=== PATIENT | female | born 1950 | race Caucasian/White ===

== ENCOUNTER 2021-02-11 18:48 | Emergency (ER) | payer MEDICARE ==
[~2021-02-11] VITALS: Ht 152.4 cm; Wt 47.2 kg
--- OUTSIDE RECORDS SUMMARY | 2021-02-11 18:50 | XMS ---
PreManage Notification: MICHELLE SALMERON Security [employer] Events No recent Security Events currently on file CRITERIA MET - PDMP CARE PROVIDERS GRAY SETHI Internal Medicine: Rheumatology Current PHONE: Unknown Davina has no Care Guidelines for this patient. EJose VISIT COUNT (12 MO.) 1 BETSEY Jiménez TOTAL 1 NOTE: Visits indicate total known visits. ED/UCC VISIT TRACKING (12 MO.) 02/11/2021 18:49 BETSEY [facility] OR TYPE: Emergency COMPLAINT: - RT SHOULDER PAIN/NO INJURY INPATIENT VISIT TRACKING (12 MO.) No inpatient visits to display in this time frame [email or web address]
[2021-02-11] MEDS ORDERED: METHOTREXA25 MG/1 ML INJ (20:11)
[2021-02-11] MEDS ORDERED: LEUCOVORIN CALCI5 MG (20:11)
[2021-02-11] MEDS ORDERED: ESTRADIOL1 EAC7 (20:11)
[2021-02-11] MEDS ORDERED: VALACYCLOVIR1000 MG PO (20:11)
[2021-02-11] MEDS ORDERED: TRAMADOL HCL E100 MG PO (20:11)
[2021-02-11] MEDS ORDERED: RINVOQ ER15 MG PO (20:11)
[2021-02-11] MEDS ORDERED: CELECOXIB100 MG PO (20:12)
[2021-02-11] MEDS ORDERED: FLUTICASONE PRO16 GM NAS (20:12)
[2021-02-11] MEDS ORDERED: PERCOCET 5-3251 EACH PO (22:02)
== END 2021-02-11 22:19 | disposition home or self-care (01) ==
LOC: ED 18:48
DX: M25.511 Pain in right shoulder (principal); M06.9 Rheumatoid arthritis, unspecified; Z88.1 Allergy status to other antibiotic agents; Z88.6 Allergy status to analgesic agent; Z79.810 Long term (current) use of selective estrogen receptor modulators (SERMs); Z79.899 Other long term (current) drug therapy
CPT/HCPCS: 73030; 96372; 99283; J1170

== ENCOUNTER 2024-11-22 17:08 | Emergency (ER) | payer MEDICARE, OTHER ==
[~2024-11-22] VITALS: Ht 152.4 cm; Wt 43.0 kg
[~2024-11-22 17:08] MED LIST: ATORVASTATIN CA10 MG PO; CELECOXIB100 MG PO; ESTRADIOL1 EAC7; FLUTICASONE PRO16 GM NAS; HYDROCODON-ACE1 EA10 PO; LEUCOVORIN CALCI5 MG; LOMOTIL TABLET1 EACH PO; METHOTREXA25 MG/1 ML INJ; ONDANSETRON ODT8 MG PO; PERCOCET 5-3251 EACH PO; RINVOQ ER15 MG PO; TRAMADOL HCL E100 MG PO; VALACYCLOVIR1000 MG PO
[2024-11-22] MEDS ORDERED: FOLIC ACID1 MG PO (17:24)
[2024-11-22] MEDS ORDERED: DESVENLAFAXINE25 MG PO (17:24)
[2024-11-22] MEDS ORDERED: OXYCODONE/APAP 5/325 TAB PO ONE (17:45)
[2024-11-22] MEDS ORDERED: ACETAMINOPHEN 325 MG TAB PO ONE (18:00)
[2024-11-22] MEDS ORDERED: PERCOCET 5-3251 EACH PO (18:28)
[2024-11-22 18:39] VITALS: BP 142/107
== END 2024-11-22 18:38 | disposition home or self-care (01) ==
LOC: ED 17:08
DX: S80.01XA Contusion of right knee, initial encounter (principal); S00.31XA Abrasion of nose, initial encounter; W10.9XXA Fall (on) (from) unspecified stairs and steps, initial encounter
CPT/HCPCS: 70450; 73560; 99284-25; A9270